=== PATIENT | male | born 1940 | race Caucasian/White ===

== ENCOUNTER 2017-04-02 06:27 | Inpatient (IN) | payer MEDICARE, BC ==
[2017-04-02 07:09] LABS: Hematocrit 33.1 % (42.0-52.0); Hemoglobin 9.2 gm/dL (13.5-18.0); Mean Cell Volume 71.8 fl (78-100); Mean Corpuscular Hgb Conc 27.8 g/dl (32-36); Mean Platelet Volume 9.3 fl (6.0-9.5); Neutrophil # 11.5 K/mm3 (1.3-6.0); Neutrophil % 84.7 % (42-75.0); Platelet Count 282 K/mm3 (150-450); Red Blood Count 4.61 M/mm3 (4.7-6.0); Red Cell Distribution Width 17.6 % (11.5-14.0); White Blood Count 13.6 K/mm3 (4.0-10.5)
[2017-04-02 07:30] LABS: Albumin * 3.4 gm/dl (3.4-5.0); Anion Gap 12.4 mmol/L (6.8-13.8); BUN/Creatinine Ratio 19.3 (9.0-21.6); Bilirubin, Total 0.6 mg/dL (0.0-1.1); Ca. Corrected For Albumin 8.9 mg/dL (8.4-10.2); Calcium * 8.7 mg/dL (7.9-10.9); Carbon Dioxide 26.5 mmol/L (24-32.6); Potassium 3.9 mmol/L (3.4-4.6); Total Protein 7.5 gm/dL (6.2-8.2)
[2017-04-02] MEDS ORDERED: NORMAL SALINE 500 ML IV ONE (08:00)
--- NOTE | 2017-04-02 08:20 | ERNOTE ---
Medical Problem HPI - Narrative Date of Service: 04/02/17 - General Chief Complaint: Nausea/Vomiting Time Seen by Provider: 04/02/17 06:49 Source: patient, RN notes reviewed Exam Limitations: no limitations - Immun/Allergies/Home Medications Immunizations: IMMUNIZATION HX Immunizations Up to Date Yes History of Influenza Vaccine Yes Hx Pneumococcal Vaccination No Allergies/Adverse Reactions: Allergies ciprofloxacin [From Cipro] Allergy (Unknown, Verified 10/20/15 12:39) ciprofloxacin HCl [From Cipro] Allergy (Unknown, Verified 10/20/15 12:39) gemifloxacin [Gemifloxacin] Allergy (Unknown, Verified 10/20/15 12:39) moxifloxacin Allergy (Unknown, Verified 10/20/15 12:39) norfloxacin Allergy (Unknown, Verified 10/20/15 12:39) ofloxacin Allergy (Unknown, Verified 10/20/15 12:39) Quinolones Allergy (Unknown, Verified 10/20/15 12:39) sulfamethoxazole [From Bactrim DS] Allergy (Unknown, Verified 10/20/15 12:39) DIZZINESS trimethoprim [From Bactrim DS] Allergy (Unknown, Verified 10/20/15 12:39) DIZZINESS levofloxacin [From Levaquin] Adverse Reaction (Mild, Verified 10/20/15 12:39) LEG CRAMPS tamsulosin HCl [From Flomax] Adverse Reaction (Mild, Verified 10/20/15 12:39) DIZZINESS, PASSED OUT Home Medications: HOME MEDICATIONS Budesonide/Formoterol Fumarate [Symbicort 160-4.5 Mcg Inhaler] 2 puff IH BID 08/06 [Last Taken Unknown] Albuterol Sulfate [Proair Hfa] 2 puff IH QID PRN 09/08/14 [Last Taken Unknown] Albuterol Sulfate/Ipratropium [Duoneb 2.5-0.5MG/3ML Soln] 2.5 ml IH QID [Last Taken Unknown] Aspirin [Aspirin Enteric Coated] 81 mg PO DAILY 09/08/14 [Last Taken Unknown] Citalopram Hydrobromide [Celexa] 10 mg PO DAILY 09/08/14 [Last Taken Unknown] Metoprolol Succinate [Toprol Xl] 12.5 mg PO BID 10/12/15 [Last Taken Unknown] Simvastatin [Zocor] 20 mg PO HS 10/12/15 [Last Taken Unknown] Cholecalciferol [Vitamin D] 1,000 unit PO DAILY 04/02/17 [Last Taken Unknown] - History of Present History Narrative: feels weak and dizzy, increased cough, thinks he has the flu, his has had influenza since last week. Increased cough, some sputum, unable to tell what color. Date (Duration): 04/02/17 Time (Timing): 03:00 Timing: constant Severity: moderate Modifying Factors - (Improves): Present: movement Review of Systems - Narrative Narrative: given 2 neb treatments per EMS. - Review of Systems Constitutional: Present: weakness, fatigue, malaise ENT: Present: no symptoms reported Respiratory: Present: shortness of breath, cough, wheezing Cardiology: Present: no symptoms reported Gastrointestinal/Abdominal: Present: no symptoms reported Musculoskeletal: Present: no symptoms reported - Patient's Past Medical History Patient History - Medical: Depression Patient History - Cardiac/Respiratory: Arrhythmias, Bronchitis, COPD, Hypertension, Hyperlipidemia, Home O2 Use Patient History - Cancer: Bladder Patient History - Surgical Procedures: Cardiac stent, Orthopedic Patient History - Other: None - Social History Living Situations: home Abuse History: No History of abuse Psych History: No pertinent hx Smoking Status: Former smoker Have you smoked in the past 12 months: No Do you dip or chew tobacco: No Alcohol Use: none Drug Use: none - Immunizations Immunizations Up to Date: Yes Hx Pneumococcal Vaccination: No History of Influenza Vaccine: Yes Physical Exam - Physical Exam General Appearance: Present: wd/wn, no apparent distress Head Exam: Present: normal inspection, no evidence of injury Ears, Nose, Throat: Present: normal ENT inspection Neck: Present: normal inspection Respiratory: Present: accessory muscle use, decreased breath sounds, wheezing. Absent: crackles, rales Cardiovascular/Chest: Present: tachycardia. Absent: systolic murmur Gastrointestinal/Abdominal: Present: normal bowel sounds, nontender Extremity Exam: Present: normal inspection, no edema, decreased range of motion Neurological Exam: Present: alert Skin Exam: Present: normal color ED Progress - Vital Signs Patient's Vital Signs:: I have reviewed the patient's vital signs. 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
[2017-04-02] MEDS ORDERED: METHYLPREDNISOLONE SOD SUCC/PF 40 MG/ML VIAL IV ONE (08:23)
[2017-04-02] MEDS ORDERED: ALBUTEROL SULFATE/IPRATROPIUM 3 ML NEBU IH ONE ×2 (08:23→08:25)
[2017-04-02] MEDS ORDERED: METHYLPREDNISOLONE SOD SUCC/PF 40 MG/ML VIAL ONE (08:25)
--- NOTE | 2017-04-02 11:09 | HP ---
Chief Complaint - Chief Complaint Date of Service: 04/02/17 Time of Service: 10:49 Chief Complaint: Shortness of breath History of Present Illness: Damir is a 76 yo male with chronic respiratory failure and COPD. He uses 2lpm of oxygen at night and with activity. He reports his is ill but has not been seen by a provider. He was feeling his usual until yesterday he began coughing more and had worsening shortness of breath. Last night he reports he was fighting for air. In the ER he was given a breathing treatment and IV steroids. - Patient's Past Medical History Patient History - Medical: Depression Patient History - Cardiac/Respiratory: Arrhythmias, Bronchitis, COPD, Hypertension, Hyperlipidemia, Home O2 Use Patient History - Cancer: Bladder Patient History - Surgical Procedures: Cardiac stent, Orthopedic Patient History - Other: None - Family History Mother Family History - Medical: History Unknown Family History - Cardiac/Respiratory: History Unknown Family History - Cancer: History Unknown Father Family History - Medical: History Unknown Family History - Cardiac/Respiratory: History Unknown Family History - Cancer: History Unknown - Social History Living Situations: home Abuse History: No History of abuse Psych History: No pertinent hx Smoking Status: Former smoker Have you smoked in the past 12 months: No Do you dip or chew tobacco: No Alcohol Use: none Drug Use: none - Immunizations Immunizations Up to Date: Yes Hx Pneumococcal Vaccination: No History of Influenza Vaccine: Yes Review Of Systems (GEN) - Review of Systems Generalized/Overall Review: Present: No Symptoms Reported EENTM: Present: No Symptoms Reported Respiratory: Present: Cough, Shortness of Breath, Wheezing Cardiac: Present: No Symptoms Reported Abdominal: Present: No Symptoms Reported Genitourinary: Present: No Symptoms Reported Musculoskeletal: Present: No Symptoms Reported Neurological: Present: No Symptoms Reported Skin: Present: No Symptoms Reported Endocrine: Present: No Symptoms Reported Misc: All systems neg except as marked Allergies/Adverse Reactions: Allergies Allergy/AdvReac Type Severity Reaction Status Date / Time ciprofloxacin [From Cipro] Allergy Unknown Verified 04/02/17 10:03 ciprofloxacin HCl Allergy Unknown Verified 04/02/17 10:03 [From Cipro] gemifloxacin [Gemifloxacin] Allergy Unknown Verified 04/02/17 10:03 moxifloxacin Allergy Unknown Verified 04/02/17 10:03 norfloxacin Allergy Unknown Verified 04/02/17 10:03 ofloxacin Allergy Unknown Verified 04/02/17 10:03 Quinolones Allergy Unknown Verified 04/02/17 10:03 sulfamethoxazole Allergy Unknown DIZZINESS Verified 04/02/17 10:03 [From Bactrim DS] trimethoprim Allergy Unknown DIZZINESS Verified 04/02/17 10:03 [From Bactrim DS] levofloxacin [From Levaquin] AdvReac Mild LEG CRAMPS Verified 04/02/17 10:03 tamsulosin HCl [From Flomax] AdvReac Mild DIZZINESS, Verified 04/02/17 10:03 PASSED OUT Home Medications: HOME MEDICATIONS Budesonide/Formoterol Fumarate [Symbicort 160-4.5 Mcg Inhaler] 2 puff IH BID 08/06 [Last Taken Unknown] Albuterol Sulfate [Proair Hfa] 2 puff IH QID PRN 09/08/14 [Last Taken Unknown] Albuterol Sulfate/Ipratropium [Duoneb 2.5-0.5MG/3ML Soln] 2.5 ml IH QID [Last Taken Unknown] Aspirin [Aspirin Enteric Coated] 81 mg PO DAILY 09/08/14 [Last Taken Unknown] Citalopram Hydrobromide [Celexa] 10 mg PO DAILY 09/08/14 [Last Taken Unknown] Metoprolol Succinate [Toprol Xl] 12.5 mg PO TID 10/12/15 [Last Taken Unknown] Simvastatin [Zocor] 20 mg PO HS 10/12/15 [Last Taken Unknown] Ascorbic Acid [Vitamin C] 500 mg PO DAILY 04/02/17 [Last Taken Unknown] Cholecalciferol [Vitamin D] 1,000 unit PO DAILY 04/02/17 [Last Taken Unknown] Exam - Exam Vital Signs: Vital Signs - Last Taken Temp 37.5 C 04/02/17 09:45 Pulse 113 H 04/02/17 09:45 Resp 28 H 04/02/17 09:45 BP 120/61 04/02/17 09:45 Pulse Ox 95 04/02/17 09:45 Constitutional: Present: Alert, Oriented x3, Cooperative ENT Exam: Present: hearing grossly normal Eye Exam: bilateral eye: normal inspection Respiratory: Present: decreased breath sounds, wheezing Cardiovascular/Chest: Present: regular rate, rhythm, no murmur Abdomen: Present: Normal bowel sounds, soft, nontender, nondistended, no rebound tenderness, no hepatospenomegaly, no masses Skin Exam: Present: normal color, warm/dry, no cyanosis Neurologic: Present: alert, normal mood/affect, oriented x 3 Appearance: Present: appropriate appearance, appropriate insight Eye contact: Present: cooperative, good eye contact, normal speech Diagnostic Studies: Abnormal Lab Results 04/02/17 Range/Units 10:05 Lactic Acid, Venous 2.6 H* (0.4-1.9) mmol/L Laboratory Results WBC 13.6 K/mm3 (4.0-10.5) H 04/02/17 07:05 RBC 4.61 M/mm3 (4.7-6.0) L 04/02/17 07:05 Hgb 9.2 gm/dL (13.5-18.0) L 04/02/17 07:05 Hct 33.1 % (42.0-52.0) L 04/02/17 07:05 MCV 71.8 fl (78-100) L 04/02/17 07:05 MCH 20.0 pg (27-31) L 04/02/17 07:05 MCHC 27.8 g/dl (32-36) L 04/02/17 07:05 RDW 17.6 % (11.5-14.0) H 04/02/17 07:05 Plt Count 282 K/mm3 (150-450) 04/02/17 07:05 MPV 9.3 fl (6.0-9.5) 04/02/17 07:05 Immature Gran % (Auto) 0.60 % (0.001-0.429) H 04/02/17 07:05 Immature Gran # (Auto) 0.08 K/mm3 (0.000-0.0310) H 04/02/17 07:05 Neutrophils % 84.7 % (42-75.0) H 04/02/17 07:05 Lymphocytes % 6.7 % (20-51) L 04/02/17 07:05 Monocytes % 6.9 % (0.0-9) 04/02/17 07:05 Eosinophils % 0.7 % (0.0-3.0) 04/02/17 07:05 Basophils % 0.4 % (0.0-1.0) 04/02/17 07:05 Nucleated RBC % 0.0 k/mm3 (0-1) 04/02/17 07:05 Neutrophils # 11.5 K/mm3 (1.3-6.0) H 04/02/17 07:05 Lymphocytes # 0.9 k/mm3 (1.5-3.5) L 04/02/17 07:05 Monocytes # 0.9 k/mm3 (0.0-1.0) 04/02/17 07:05 Eosinophils # 0.1 k/mm3 (0.0-0.7) 04/02/17 07:05 Absolute Basophils 0.1 k/mm3 (0.0-0.1) 04/02/17 07:05 Sodium 139 mmol/L (132-142) 04/02/17 07:05 Plasma Sodium 139 mmol/L (130-142) 04/02/17 07:05 Potassium 3.9 mmol/L (3.4-4.6) 04/02/17 07:05 Chloride 104 mmol/L (97-106) 04/02/17 07:05 Carbon Dioxide 26.5 mmol/L (24-32.6) 04/02/17 07:05 Anion Gap 12.4 mmol/L (6.8-13.8) 04/02/17 07:05 BUN 22 mg/dL (6-23) 04/02/17 07:05 Creatinine 1.14 mg/dL (0.4-1.4) 04/02/17 07:05 Est GFR (Non-Af Amer) 67 mL/min (60-130) 04/02/17 07:05 BUN/Creatinine Ratio 19.3 (9.0-21.6) 04/02/17 07:05 Random Glucose 127 mg/dL (70-110) H 04/02/17 07:05 Lactic Acid, Venous 2.6 mmol/L (0.4-1.9) H* 04/02/17 10:05 Calcium 8.7 mg/dL (7.9-10.9) 04/02/17 07:05 Calcium Adj for Albumin 8.9 mg/dL (8.4-10.2) 04/02/17 07:05 Total Bilirubin 0.6 mg/dL (0.0-1.1) 04/02/17 07:05 AST 22 U/L (0-48) 04/02/17 07:05 ALT 24 U/L (19-67) 04/02/17 07:05 Alkaline Phosphatase 137 U/L (50-170) 04/02/17 07:05 B-Natriuretic Peptide 260 pg/mL (5-650) 04/02/17 07:05 Total Protein 7.5 gm/dL (6.2-8.2) 04/02/17 07:05 Albumin 3.4 gm/dl (3.4-5.0) 04/02/17 07:05 Influenza Type A Ag Negative (NEGATIVE) 04/02/17 07:05 Influenza Type B Ag Negative (NEGATIVE) 04/02/17 07:05 Assessment/Plan - Assessment/Plan (1) COPD exacerbation Assessment: Damir is a 76 yo male with COPD exacerbation. Chest xray shows no pneumonia. He had increased work of breathing overnight but is better after breathing treatment and steroids in the ER. Will continue breathing treatments, steroids, and antibiotics for COPD exacerbation. There is no acute worsening of chronic respiratory failure. Will admit to observation. Expect 1 midnight stay. Problem: Acute (2) Chronic respiratory failure Problem: Acute Qualifiers: Respiratory failure complication: hypoxia Qualified Code(s): J96.11 - Chronic respiratory failure with hypoxia
[2017-04-02] MEDS ORDERED: AZITHROMYCIN 250 MG TABLET PO ONE (11:11)
[2017-04-02] MEDS ORDERED: ALBUTEROL SULFATE 2.5 MG/0.5 ML VIAL.NEB IH PRN (11:13)
[2017-04-02] MEDS: CITALOPRAM HYDROBROMIDE 10 MG TABLET PO SCH (11:42)
[2017-04-02] MEDS: cefTRIAXone SODIUM 1,000 MG in DEXTROSE 5 % IN WATER 50 ML IV SCH ×2 (11:42)
[2017-04-02] MEDS: ASPIRIN 81 MG TABLET.DR PO SCH (11:42)
[2017-04-02] MEDS: CHOLECALCIFEROL 1,000 UNIT CAPSULE PO SCH (11:43)
[2017-04-02] MEDS: ALBUTEROL SULFATE/IPRATROPIUM 3 ML NEBU IH SCH ×4 (12:00→22:41)
[2017-04-02] MEDS: METOPROLOL TARTRATE 25 MG TABLET PO SCH ×2 (12:29→16:23)
[2017-04-02] MEDS ORDERED: METHYLPREDNISOLONE SOD SUCC 60 MG in WATER FOR INJ.,BACTERIOSTATIC 0 ML IV ONE (16:00)
[2017-04-02] MEDS: SIMVASTATIN 20 MG TABLET PO SCH (20:58)
[2017-04-03] MEDS: ALBUTEROL SULFATE/IPRATROPIUM 3 ML NEBU IH SCH ×6 (02:11→22:00)
[2017-04-03] MEDS ORDERED: FLUTICASONE/SALMETEROL 14 PUFF DISK.W.DEV IH SCH ×2 (07:00→10:00)
[2017-04-03 08:08] LABS: Hemoglobin 8.5 gm/dL (13.5-18.0); Mean Cell Volume 71.8 fl (78-100); Mean Corpuscular Hemoglobin 19.7 pg (27-31); Mean Corpuscular Hgb Conc 27.4 g/dl (32-36); Mean Platelet Volume 9.6 fl (6.0-9.5); Neutrophil # 8.9 K/mm3 (1.3-6.0); Neutrophil % 82.4 % (42-75.0); Platelet Count 272 K/mm3 (150-450); Red Blood Count 4.32 M/mm3 (4.7-6.0); Red Cell Distribution Width 17.6 % (11.5-14.0); White Blood Count 10.8 K/mm3 (4.0-10.5)
[2017-04-03 08:24] LABS: Albumin * 3.4 gm/dl (3.4-5.0); Anion Gap 8.7 mmol/L (6.8-13.8); BUN/Creatinine Ratio 18.7 (9.0-21.6); Bilirubin, Total 0.3 mg/dL (0.0-1.1); Ca. Corrected For Albumin 8.8 mg/dL (8.4-10.2); Calcium * 8.6 mg/dL (7.9-10.9); Carbon Dioxide 29.1 mmol/L (24-32.6); Potassium 3.8 mmol/L (3.4-4.6); Total Protein 7.3 gm/dL (6.2-8.2)
[2017-04-03] MEDS: predniSONE 20 MG TABLET PO SCH (08:24)
[2017-04-03] MEDS: CHOLECALCIFEROL 1,000 UNIT CAPSULE PO SCH (08:24)
[2017-04-03] MEDS: METOPROLOL TARTRATE 25 MG TABLET PO SCH ×3 (08:24→16:26)
[2017-04-03] MEDS: ASPIRIN 81 MG TABLET.DR PO SCH (08:24)
[2017-04-03] MEDS: AZITHROMYCIN 250 MG TABLET PO SCH (08:24)
[2017-04-03] MEDS: CITALOPRAM HYDROBROMIDE 10 MG TABLET PO SCH (08:24)
[2017-04-03] MEDS: SYMBICORT 160/4.5 INH SCH ×3 (10:34→21:45)
[2017-04-03] MEDS: cefTRIAXone SODIUM 1,000 MG in DEXTROSE 5 % IN WATER 50 ML IV SCH ×2 (11:24)
[2017-04-03 17:54] LABS: Hematocrit 31.8 % (42.0-52.0); Hemoglobin 8.8 gm/dL (13.5-18.0); Mean Cell Volume 71.5 fl (78-100); Mean Corpuscular Hemoglobin 19.8 pg (27-31); Mean Corpuscular Hgb Conc 27.7 g/dl (32-36); Mean Platelet Volume 9.4 fl (6.0-9.5); Platelet Count 282 K/mm3 (150-450); Red Blood Count 4.45 M/mm3 (4.7-6.0); Red Cell Distribution Width 17.7 % (11.5-14.0); White Blood Count 11.9 K/mm3 (4.0-10.5)
[2017-04-03] MEDS: diphenhydrAMINE HCL 50 MG CAPSULE PO SCH (21:46)
[2017-04-03] MEDS: POLYETHYLENE GLYCOL 3350 119 GM BTL PO PRN (21:46)
[2017-04-03] MEDS: SIMVASTATIN 20 MG TABLET PO SCH (21:46)
--- NOTE | 2017-04-03 22:44 | PN ---
Subjective - Date and Time Seen Date: 04/03/17 Time: 16:45 Subjective Narrative: Damir reports feeling short of breath. Needs oxygen on at all times or else gets severely dyspneic. No fever, chills, nausea, or vomiting. Objective - Vitals Vitals: Last Vital Signs Temp 37.3 C 04/03/17 19:35 Pulse 96 04/03/17 22:10 Resp 18 04/03/17 22:10 BP 115/66 04/03/17 19:35 Pulse Ox 98 04/03/17 22:00 - Abnormal Lab Findings Abnormal Lab Findings: Abnormal Lab Results 04/03/17 04/03/17 04/03/17 Range/Units 08:02 08:02 17:20 WBC 10.8 H D 11.9 H (4.0-10.5) K/mm3 RBC 4.32 L 4.45 L (4.7-6.0) M/mm3 Hgb 8.5 L 8.8 L (13.5-18.0) gm/dL Hct 31.0 L 31.8 L (42.0-52.0) % MCV 71.8 L 71.5 L (78-100) fl MCH 19.7 L 19.8 L (27-31) pg MCHC 27.4 L 27.7 L (32-36) g/dl RDW 17.6 H 17.7 H (11.5-14.0) % MPV 9.6 H (6.0-9.5) fl Immature Gran # (Auto) 0.04 H (0.000-0.0310) K/mm3 Neutrophils % 82.4 H (42-75.0) % Lymphocytes % 5.2 L (20-51) % Monocytes % 12.0 H (0.0-9) % Neutrophils # 8.9 H (1.3-6.0) K/mm3 Lymphocytes # 0.6 L (1.5-3.5) k/mm3 Monocytes # 1.3 H (0.0-1.0) k/mm3 Random Glucose 149 H (70-110) mg/dL AST 73 H (0-48) U/L - Exam Constitutional: Present: Alert, Oriented x3, Cooperative ENT Exam: Present: hearing grossly normal Respiratory: Present: decreased breath sounds, wheezing Cardiovascular/Chest: Present: no murmur, tachycardia Abdomen: Present: Normal bowel sounds, soft, nontender, nondistended Extremity: Present: normal inspection Skin Exam: Present: normal color, warm/dry, no cyanosis Assessment/Plan - Problems/Diagnosis (1) COPD exacerbation Problem: Acute Narrative: Continue antibiotics, steroids, breathing treatments. Continue oxygen continuous. Attempting to wean to baseline of oxygen with activity. (2) Chronic respiratory failure Problem: Acute Qualifiers: Respiratory failure complication: hypoxia Qualified Code(s): J96.11 - Chronic respiratory failure with hypoxia
[2017-04-04] MEDS: ALBUTEROL SULFATE/IPRATROPIUM 3 ML NEBU IH SCH ×6 (02:36→23:17)
[2017-04-04] MEDS: SYMBICORT 160/4.5 INH SCH ×2 (08:05→21:20)
[2017-04-04] MEDS: CITALOPRAM HYDROBROMIDE 10 MG TABLET PO SCH (08:05)
[2017-04-04] MEDS: ASPIRIN 81 MG TABLET.DR PO SCH (08:05)
[2017-04-04] MEDS: predniSONE 20 MG TABLET PO SCH (08:06)
[2017-04-04] MEDS: CHOLECALCIFEROL 1,000 UNIT CAPSULE PO SCH (08:06)
[2017-04-04] MEDS: AZITHROMYCIN 250 MG TABLET PO SCH (08:06)
[2017-04-04 08:24] LABS: Hematocrit 31.4 % (42.0-52.0); Hemoglobin 8.6 gm/dL (13.5-18.0); Mean Cell Volume 71.7 fl (78-100); Mean Corpuscular Hemoglobin 19.6 pg (27-31); Mean Corpuscular Hgb Conc 27.4 g/dl (32-36); Mean Platelet Volume 9.4 fl (6.0-9.5); Platelet Count 258 K/mm3 (150-450); Red Blood Count 4.38 M/mm3 (4.7-6.0); Red Cell Distribution Width 17.7 % (11.5-14.0); White Blood Count 10.5 K/mm3 (4.0-10.5)
[2017-04-04 08:37] LABS: Albumin * 3.2 gm/dl (3.4-5.0); Anion Gap 8.1 mmol/L (6.8-13.8); BUN/Creatinine Ratio 21.9 (9.0-21.6); Bilirubin, Total 0.4 mg/dL (0.0-1.1); Calcium * 8.7 mg/dL (7.9-10.9); Carbon Dioxide 33.2 mmol/L (24-32.6); Potassium 4.3 mmol/L (3.4-4.6); Total Protein 7.1 gm/dL (6.2-8.2)
[2017-04-04 08:40] LABS: Total Cells Counted 100
[2017-04-04] MEDS: METOPROLOL TARTRATE 25 MG TABLET PO SCH (08:41)
[2017-04-04 08:45] LABS: Atypical (Reactive) Lymph 1 % (0-2); Band 1 % (0-2.0); Hypochromia 1+; Immature Granulocyte 3 (0-1); Lymphocyte 13 % (20-51); Microcytosis 1+; Monocyte 7 % (0-9); Neutrophil 75 % (42-75); Neutrophil # 7.9 K/mm3 (1.3-6.0); Platelet Estimate Normal (NORMAL)
[2017-04-04] MEDS: cefTRIAXone SODIUM 1,000 MG in DEXTROSE 5 % IN WATER 50 ML IV SCH ×2 (11:23)
[2017-04-04] MEDS ORDERED: LORazepam 0.5 MG TABLET PO PRN (15:09)
[2017-04-04] MEDS: POLYETHYLENE GLYCOL 3350 119 GM BTL PO PRN (21:15)
[2017-04-04] MEDS: diphenhydrAMINE HCL 50 MG CAPSULE PO SCH (21:16)
[2017-04-04] MEDS: SIMVASTATIN 20 MG TABLET PO SCH (21:17)
--- NOTE | 2017-04-04 23:28 | PN ---
Subjective - Date and Time Seen Date: 04/04/17 Time: 08:16 Subjective Narrative: Damir reports not feeling much better today. Still short of breath continuous and needs oxygen continuous. No fever, chills, nausea, vomiting. Objective - Vitals Vitals: Last Vital Signs Temp 36.8 C 04/04/17 19:19 Pulse 95 04/04/17 23:17 Resp 20 04/04/17 23:17 BP 111/52 04/04/17 19:19 Pulse Ox 96 04/04/17 23:17 - Exam Constitutional: Present: Alert, Oriented x3, Cooperative Respiratory: Present: decreased breath sounds, wheezing Cardiovascular/Chest: Present: no murmur, tachycardia Abdomen: Present: Normal bowel sounds, soft, nontender, nondistended Skin Exam: Present: normal color, warm/dry, no cyanosis Assessment/Plan Plan Narrative: Continues to require oxygen continuous which is greater than his baseline needs at home. Continue steroids, breathing treatments, and antibiotics. - Problems/Diagnosis (1) COPD exacerbation Problem: Acute (2) Chronic respiratory failure Problem: Acute Qualifiers: Respiratory failure complication: hypoxia Qualified Code(s): J96.11 - Chronic respiratory failure with hypoxia
[2017-04-05] MEDS: ALBUTEROL SULFATE/IPRATROPIUM 3 ML NEBU IH SCH ×7 (02:30→22:48)
[2017-04-05] MEDS: CHOLECALCIFEROL 1,000 UNIT CAPSULE PO SCH (08:28)
[2017-04-05] MEDS: METOPROLOL TARTRATE 25 MG TABLET PO SCH (08:28)
[2017-04-05] MEDS: AZITHROMYCIN 250 MG TABLET PO SCH (08:28)
[2017-04-05] MEDS: CITALOPRAM HYDROBROMIDE 10 MG TABLET PO SCH (08:28)
[2017-04-05] MEDS: ASPIRIN 81 MG TABLET.DR PO SCH (08:28)
[2017-04-05] MEDS: predniSONE 20 MG TABLET PO SCH (08:28)
[2017-04-05] MEDS: SYMBICORT 160/4.5 INH SCH ×2 (08:29→20:23)
[2017-04-05] MEDS ORDERED: BENZOCAINE/MENTHOL 16 EACH BOX MM PRN (08:35)
[2017-04-05] MEDS: cefTRIAXone SODIUM 1,000 MG in DEXTROSE 5 % IN WATER 50 ML IV SCH ×2 (12:19)
[2017-04-05] MEDS: ACETYLCYSTEINE 100 MG/ML VIAL IH SCH ×3 (13:59→22:48)
[2017-04-05] MEDS: diphenhydrAMINE HCL 50 MG CAPSULE PO SCH (20:23)
[2017-04-05] MEDS: SIMVASTATIN 20 MG TABLET PO SCH (20:23)
--- NOTE | 2017-04-05 22:58 | PN ---
Subjective - Date and Time Seen Date: 04/05/17 Time: 16:53 Subjective Narrative: Damir reports having mucus that he can't cough up. No fever, chills, n/v. Remains dyspneic without oxygen at rest. No energy. Objective - Vitals Vitals: Last Vital Signs Temp 36.6 C 04/05/17 19:57 Pulse 94 04/05/17 22:48 Resp 20 04/05/17 22:48 BP 114/61 04/05/17 19:57 Pulse Ox 97 04/05/17 22:48 - Exam Constitutional: Present: Alert, Oriented x3, Cooperative ENT Exam: Present: normal ENT inspection, hearing grossly normal Respiratory: Present: decreased breath sounds, wheezing Cardiovascular/Chest: Present: no murmur, tachycardia Abdomen: Present: Normal bowel sounds, soft, nontender, nondistended Skin Exam: Present: normal color, warm/dry, no cyanosis Assessment/Plan Plan Narrative: Continue steroids and antibiotics. Will add mucomyst to breathing treatments to help break up phlegm. - Problems/Diagnosis (1) COPD exacerbation Problem: Acute (2) Chronic respiratory failure Problem: Acute Qualifiers: Respiratory failure complication: hypoxia Qualified Code(s): J96.11 - Chronic respiratory failure with hypoxia
[2017-04-06] MEDS: ACETYLCYSTEINE 100 MG/ML VIAL IH SCH ×6 (02:34→22:12)
[2017-04-06] MEDS: ALBUTEROL SULFATE/IPRATROPIUM 3 ML NEBU IH SCH ×6 (02:34→22:12)
[2017-04-06 08:35] LABS: Anion Gap 6.8 mmol/L (6.8-13.8); BUN/Creatinine Ratio 19.8 (9.0-21.6); Bilirubin, Total 0.3 mg/dL (0.0-1.1); Ca. Corrected For Albumin 8.9 mg/dL (8.4-10.2); Calcium * 8.4 mg/dL (7.9-10.9); Potassium 3.8 mmol/L (3.4-4.6); Total Protein 6.8 gm/dL (6.2-8.2)
[2017-04-06 08:39] LABS: Hematocrit 30.2 % (42.0-52.0); Hemoglobin 8.4 gm/dL (13.5-18.0); Mean Cell Volume 71.7 fl (78-100); Mean Corpuscular Hgb Conc 27.8 g/dl (32-36); Mean Platelet Volume 9.2 fl (6.0-9.5); Neutrophil # 4.4 K/mm3 (1.3-6.0); Neutrophil % 68.9 % (42-75.0); Platelet Count 235 K/mm3 (150-450); Red Blood Count 4.21 M/mm3 (4.7-6.0); Red Cell Distribution Width 17.7 % (11.5-14.0); White Blood Count 6.4 K/mm3 (4.0-10.5)
[2017-04-06] MEDS ORDERED: FUROSEMIDE 10 MG/ML VIAL IV ONE (09:54)
[2017-04-06] MEDS: ASPIRIN 81 MG TABLET.DR PO SCH (10:20)
[2017-04-06] MEDS: CITALOPRAM HYDROBROMIDE 10 MG TABLET PO SCH (10:20)
[2017-04-06] MEDS: predniSONE 20 MG TABLET PO SCH (10:20)
[2017-04-06] MEDS: SYMBICORT 160/4.5 INH SCH ×2 (10:20→21:16)
[2017-04-06] MEDS: CHOLECALCIFEROL 1,000 UNIT CAPSULE PO SCH (10:20)
[2017-04-06] MEDS: METOPROLOL TARTRATE 25 MG TABLET PO SCH (10:20)
[2017-04-06] MEDS: AZITHROMYCIN 250 MG TABLET PO SCH (10:21)
[2017-04-06] MEDS: cefTRIAXone SODIUM 1,000 MG in DEXTROSE 5 % IN WATER 50 ML IV SCH ×2 (13:13)
[2017-04-06 19:49] LABS: Hematocrit 34.3 % (42.0-52.0); Hemoglobin 10.1 gm/dL (13.5-18.0); Mean Corpuscular Hemoglobin 21.5 pg (27-31); Mean Corpuscular Hgb Conc 29.4 g/dl (32-36); Mean Platelet Volume 9.9 fl (6.0-9.5); Platelet Count 229 K/mm3 (150-450); Red Cell Distribution Width 19.1 % (11.5-14.0); White Blood Count 5.8 K/mm3 (4.0-10.5)
[2017-04-06] MEDS: diphenhydrAMINE HCL 50 MG CAPSULE PO SCH (21:16)
[2017-04-06] MEDS: CEFDINIR 300 MG CAPSULE PO SCH (21:17)
[2017-04-06] MEDS: SIMVASTATIN 20 MG TABLET PO SCH (21:18)
--- NOTE | 2017-04-06 23:19 | PN ---
Subjective - Date and Time Seen Date: 04/06/17 Time: 16:45 Subjective Narrative: Daimr reports feeling better today. Slept well. Still needing oxygen continuous. Objective - Vitals Vitals: Last Vital Signs Temp 36.4 C L 04/06/17 21:00 Pulse 92 04/06/17 22:22 Resp 20 04/06/17 22:22 BP 114/56 04/06/17 21:00 Pulse Ox 96 04/06/17 22:12 - Abnormal Lab Findings Abnormal Lab Findings: Abnormal Lab Results 04/06/17 04/06/17 04/06/17 Range/Units 08:19 08:19 09:58 RBC 4.21 L (4.7-6.0) M/mm3 Hgb 8.4 L 10.1 L (13.5-18.0) gm/dL Hct 30.2 L 34.3 L (42.0-52.0) % MCV 71.7 L 73.0 L (78-100) fl MCH 20.0 L 21.5 L (27-31) pg MCHC 27.8 L 29.4 L (32-36) g/dl RDW 17.7 H 19.1 H (11.5-14.0) % MPV 9.9 H (6.0-9.5) fl Lymphocytes % 16.4 L (20-51) % Monocytes % 14.0 H (0.0-9) % Lymphocytes # 1.0 L (1.5-3.5) k/mm3 Carbon Dioxide 34.0 H (24-32.6) mmol/L AST 52 H (0-48) U/L Albumin 3.0 L (3.4-5.0) gm/dl Crossmatch 04/06/17 Range/Units 10:17 RBC (4.7-6.0) M/mm3 Hgb (13.5-18.0) gm/dL Hct (42.0-52.0) % MCV (78-100) fl MCH (27-31) pg MCHC (32-36) g/dl RDW (11.5-14.0) % MPV (6.0-9.5) fl Lymphocytes % (20-51) % Monocytes % (0.0-9) % Lymphocytes # (1.5-3.5) k/mm3 Carbon Dioxide (24-32.6) mmol/L AST (0-48) U/L Albumin (3.4-5.0) gm/dl Crossmatch See Detail - Exam Constitutional: Present: Alert, Oriented x3, Cooperative ENT Exam: Present: hearing grossly normal Respiratory: Present: decreased breath sounds Cardiovascular/Chest: Present: no murmur, tachycardia Abdomen: Present: Normal bowel sounds, soft, nontender, nondistended Skin Exam: Present: normal color, warm/dry, no cyanosis Assessment/Plan Plan Narrative: Continue current treatment. Patient gradually improving but slowly due to chronic respiratory failure and COPD. - Problems/Diagnosis (1) COPD exacerbation Problem: Acute (2) Chronic respiratory failure Problem: Acute Qualifiers: Respiratory failure complication: hypoxia Qualified Code(s): J96.11 - Chronic respiratory failure with hypoxia
[2017-04-07] MEDS: ALBUTEROL SULFATE/IPRATROPIUM 3 ML NEBU IH SCH ×6 (02:14→22:28)
[2017-04-07] MEDS: ACETYLCYSTEINE 100 MG/ML VIAL IH SCH ×6 (02:14→22:28)
[2017-04-07] MEDS: SYMBICORT 160/4.5 INH SCH ×2 (09:59→21:10)
[2017-04-07] MEDS: METOPROLOL TARTRATE 25 MG TABLET PO SCH (09:59)
[2017-04-07] MEDS: ASPIRIN 81 MG TABLET.DR PO SCH (10:00)
[2017-04-07] MEDS: CHOLECALCIFEROL 1,000 UNIT CAPSULE PO SCH (10:00)
[2017-04-07] MEDS: CITALOPRAM HYDROBROMIDE 10 MG TABLET PO SCH (10:00)
[2017-04-07] MEDS: CEFDINIR 300 MG CAPSULE PO SCH ×2 (10:00→21:11)
[2017-04-07] MEDS: predniSONE 20 MG TABLET PO SCH (10:00)
[2017-04-07] MEDS: SIMVASTATIN 20 MG TABLET PO SCH (21:11)
[2017-04-07] MEDS: diphenhydrAMINE HCL 50 MG CAPSULE PO SCH (21:11)
[2017-04-07] MEDS: POLYETHYLENE GLYCOL 3350 119 GM BTL PO PRN (21:26)
--- NOTE | 2017-04-07 23:53 | PN ---
Subjective - Date and Time Seen Date: 04/07/17 Time: 12:46 Subjective Narrative: Feeling much better today. Not using oxygen with rest as much. No fever, chills , nausea, or vomiting. Objective - Vitals Vitals: Last Vital Signs Temp 36.9 C 04/07/17 23:01 Pulse 80 04/07/17 23:01 Resp 18 04/07/17 23:01 BP 119/64 04/07/17 23:01 Pulse Ox 97 04/07/17 23:01 - Exam Constitutional: Present: Alert, Oriented x3, Cooperative ENT Exam: Present: hearing grossly normal Respiratory: Present: decreased breath sounds Cardiovascular/Chest: Present: regular rate, rhythm, no murmur Abdomen: Present: Normal bowel sounds, soft, nontender, nondistended Skin Exam: Present: normal color, warm/dry, no cyanosis Assessment/Plan Plan Narrative: Improving. Continue steroids, breathing treatments, antibiotics. Anticipate discharge to home tomorrow. Using oxygen with activity mostly, almost back to baseline. - Problems/Diagnosis (1) COPD exacerbation Problem: Acute (2) Chronic respiratory failure Problem: Acute Qualifiers: Respiratory failure complication: hypoxia Qualified Code(s): J96.11 - Chronic respiratory failure with hypoxia
[2017-04-08] MEDS: ALBUTEROL SULFATE/IPRATROPIUM 3 ML NEBU IH SCH ×3 (02:03→10:15)
[2017-04-08] MEDS: ACETYLCYSTEINE 100 MG/ML VIAL IH SCH ×3 (02:03→10:18)
[2017-04-08] MEDS: predniSONE 20 MG TABLET PO SCH (09:23)
[2017-04-08] MEDS: CHOLECALCIFEROL 1,000 UNIT CAPSULE PO SCH (09:23)
[2017-04-08] MEDS: SYMBICORT 160/4.5 INH SCH (09:23)
[2017-04-08] MEDS: ASPIRIN 81 MG TABLET.DR PO SCH (09:23)
[2017-04-08] MEDS: METOPROLOL TARTRATE 25 MG TABLET PO SCH (09:23)
[2017-04-08] MEDS: CEFDINIR 300 MG CAPSULE PO SCH (09:23)
[2017-04-08] MEDS: CITALOPRAM HYDROBROMIDE 10 MG TABLET PO SCH (09:23)
[2017-04-08] MEDS ORDERED: SODIUM CHLORIDE 45 SPRAY BTL NS SCH (09:30)
[2017-04-08 10:15] LABS: Hematocrit 32.8 % (42.0-52.0); Hemoglobin 9.4 gm/dL (13.5-18.0); Mean Cell Volume 72.9 fl (78-100); Mean Corpuscular Hemoglobin 20.9 pg (27-31); Mean Corpuscular Hgb Conc 28.7 g/dl (32-36); Mean Platelet Volume 9.5 fl (6.0-9.5); Platelet Count 214 K/mm3 (150-450); Red Cell Distribution Width 19.2 % (11.5-14.0); White Blood Count 8.3 K/mm3 (4.0-10.5)
[2017-04-08 10:26] LABS: Total Cells Counted 100
[2017-04-08 10:29] LABS: Albumin * 2.8 gm/dl (3.4-5.0); Anion Gap 6.8 mmol/L (6.8-13.8); BUN/Creatinine Ratio 21.6 (9.0-21.6); Bilirubin, Total 0.6 mg/dL (0.0-1.1); Ca. Corrected For Albumin 8.9 mg/dL (8.4-10.2); Calcium * 8.3 mg/dL (7.9-10.9); Carbon Dioxide 34.8 mmol/L (24-32.6); Potassium 3.6 mmol/L (3.4-4.6); Total Protein 6.3 gm/dL (6.2-8.2)
[2017-04-08 10:37] LABS: Atypical (Reactive) Lymph 8 % (0-2); Eosinophil 1 % (0-3); Lymphocyte 26 % (20-51); Monocyte 11 % (0-9); Neutrophil 54 % (42-75); Neutrophil # 4.5 K/mm3 (1.3-6.0); Platelet Estimate Normal (NORMAL)
[2017-04-08 10:38] LABS: RBC Morphology Normal (NORMAL)
[2017-04-08 10:45] VITALS: BP 133/84
--- NOTE | 2017-04-08 10:48 | DS ---
(1) Acute on chronic respiratory failure Problem: Acute (2) COPD exacerbation Problem: Acute Description of Stay: Damir is a 76 yo male with COPD and chronic respiratory failure chronically using 2lpm of oxygen with activity. In the ER he dropped below 90% SpO2 at rest on room air. He was placed on 2-3lpm of continuous oxygen. He was diagnosed with COPD exacerbation and admitted with acute on chronic respiratory failure requiring 2lpm oxygen continuous to keep oxygen >90%. He was treated with rocephin and azithromycin, IV steroids, oxygen, and breathing treatments. He was given mucinex for mucolytics. He gradually felt better but continued to require continuous oxygen. Mucomyst was added to help him loosen phlegm and he improved. He improved and was set up for home discharge. He continued to need oxygen at times during rest. He will use oxygen continuous at home as needed. This may take a longer wean from oxygen or a new level of chronic need. IV steroids were adjusted to oral prednisone with a taper at discharge. He will complete the rest of antibiotics as outpatient. Procedures Performed: none Discharge Disposition: Home self care Disposition: Home self-care Condition: Fair Discharge Activity: Activity as tolerated Discharge Diet: General/regular food Referrals: Tracee Gallegos MD [Primary Care Provider] - (Patient request to follow up with El or Surjit as needed. Does not want a follow up scheduled.) Problem Oriented Discharge Instructions to Patient/Family: Chronic Obstructive Pulmonary Disease Exacerbation, [id number], Chronic Respiratory Failure, Chronic Obstructive Pulmonary Disease, [id number] Additional Patient Instructions (free text): Please make TCM appointment unless group home discharge. Thank you! Vijaya @ [phone]. Wanting [facility] again at discharge for nursing and therapies. Use 2lpm oxygen continuous. Prescriptions (Any new or edited meds): Cefdinir [Omnicef] 300 mg PO BID #20 capsule predniSONE [Prednisone] 40 mg PO DAILY #25 tablet Complete Home Medications List: Complete Home Medication List: Budesonide/Formoterol Fumarate [Symbicort 160-4.5 Mcg Inhaler] 2 puff IH BID 08/06 Albuterol Sulfate [Proair Hfa] 2 puff IH QID PRN 09/08/14 Albuterol Sulfate/Ipratropium [Duoneb 2.5-0.5MG/3ML Soln] 2.5 ml IH QID Aspirin [Aspirin Enteric Coated] 81 mg PO DAILY 09/08/14 Citalopram Hydrobromide [Celexa] 10 mg PO DAILY 09/08/14 Metoprolol Succinate [Toprol Xl] 12.5 mg PO TID 10/12/15 Simvastatin [Zocor] 20 mg PO HS 10/12/15 Ascorbic Acid [Vitamin C] 500 mg PO DAILY 04/02/17 Cholecalciferol [Vitamin D] 1,000 unit PO DAILY 04/02/17 Cefdinir [Omnicef] 300 mg PO BID #20 capsule 04/08/17 predniSONE [Prednisone] 40 mg PO DAILY #25 tablet 04/08/17
== END 2017-04-08 12:18 | disposition home or self-care (01) | DRG 189 ==
LOC: ER 06:27 → MS 09:17 → OBSVTOIN 04-04 09:08
PROVIDERS: ADMIT Family Medicine; ATTEND Family Medicine
DX: J96.20 Acute and chronic respiratory failure, unspecified whether with hypoxia or hypercapnia (principal); J44.1 Chronic obstructive pulmonary disease with (acute) exacerbation; D64.9 Anemia, unspecified; I10 Essential (primary) hypertension; I25.10 Atherosclerotic heart disease of native coronary artery without angina pectoris; Z95.5 Presence of coronary angioplasty implant and graft; Z99.81 Dependence on supplemental oxygen; Z87.891 Personal history of nicotine dependence; Z88.0 Allergy status to penicillin
CPT/HCPCS: 36415; 71046; 80053; 82272; 83605; 83880; 85007; 85025; 85027; 86850; 86900; 87040; 87070; 87400; 93005; 94640; 97110; 97116; 97162; 97530; 99284; G0378; G8978; G8979; G8980; P9016